=== PATIENT | male | born 1960 | race African-American/Black ===

== ENCOUNTER 2025-01-03 06:34 | Day surgery (SDC) | payer MEDICARE, OTHER, SELFPAY ==
[2025-01-03 12:15] VITALS: BP 159/88; BMI 27.5
[2025-01-03 12:25] VITALS: BMI 27.5
[2025-01-03] MEDS: NORMOSOL-R/PLASMALYTE-A 1000 IV (12:31)
[2025-01-03 15:55] VITALS: BP 160/87
[2025-01-03 16:00] VITALS: BP 150/88
[2025-01-03 16:13] VITALS: BP 151/101
[2025-01-03 16:15] VITALS: BP 152/83
[2025-01-03] MEDS: ROXICODONE 5 MG PO (16:27)
[2025-01-03 16:30] VITALS: BP 151/81
== END 2025-01-03 17:05 | disposition home or self-care (01) ==
LOC: SDS 06:34
PROVIDERS: ATTENDING PHYSICIAN Otolaryngology
DX: D02.0 Carcinoma in situ of larynx (principal); J37.0 Chronic laryngitis; K21.9 Gastro-esophageal reflux disease without esophagitis; K08.89 Other specified disorders of teeth and supporting structures; Z94.0 Kidney transplant status; Z87.891 Personal history of nicotine dependence
CPT/HCPCS: 31536; 88305